=== PATIENT | male | born 2005 | race Caucasian/White ===

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

== ENCOUNTER 2024-08-31 12:59 | Emergency (ER) | payer OTHER, SELFPAY ==
[2024-08-31 13:07] VITALS: BP 119/54; PULSE 84; RESP 20; TEMP 36.7; O2SAT 98
[2024-08-31 13:37] LABS: EDSTREPNEGPOS1 Negative (Negative)
--- NOTE | 2024-08-31 14:13 | ED_ITS ---
HPI - General Adult General Chief complaint: Upper Respiratory Infection Stated complaint: Sore Throat Source: patient Mode of arrival: ambulatory Limitations: no limitations History of Present Illness HPI narrative: Patient presents requesting a strep test. He lives with two individuals at tested positive for strep earlier today. He denies sore throat. No fever, chills, cough otalgia, nausea, or diarrhea. In fact, he has no physical symptoms whatsoever. Related Data Home Medications ?Medication ?Instructions ?Recorded ?Confirmed ?Last Taken ?Type No Home Medications 11/01/23 08/31/24 Unknown History Allergies Allergy/AdvReac Type Severity Reaction Status Date / Time No Known Allergies Allergy Unknown Verified 08/31/24 13:53 Review of Systems Review of Systems: CONSTITUTIONAL: Denies fever, chills, or sweats. EYES: Denies visual changes, redness, or discharge. ENT: Denies rhinorrhea, congestion, sore throat, or otalgia. CARDIOVASCULAR: Denies chest pain, palpitations, or edema. RESPIRATORY: Denies cough or dyspnea. GASTROINTESTINAL: Denies abdominal pain, nausea, vomiting, or diarrhea. GENITOURINARY: Denies dysuria or hematuria. SKIN: Denies rash or itching. MUSCULOSKELETAL: Denies back pain, joint pain, or myalgia. NEUROLOGIC: Denies headache, numbness, dizziness, or weakness. PSYCHIATRIC: Denies anxiety or depression. PMFSH Past Medical History Medical History No pertinent past medical history Surgical History Surgical History No pertinent past surgical history Family History Family History Mother Family history non-contributory Social History Social History (Updated 08/31/24 @ 14:15 by Bharathi Dobbins, [facility], ) Substance use: current Substance use type: marijuana Living arrangements: with family Gender identity (if verbalized by the patient): Male Spiritual care concerns: No Exam Narrative: GENERAL: Well-appearing, well-nourished, and in no acute distress. HEAD: Normocephalic, atraumatic. EYES: PERRLA and EOMI. ENT: Nares clear, no rhinorrhea or epistaxis. Mucous membranes moist. Oropharynx without tonsillar hypertrophy exudate or other lesions. Bilateral TMs pearly bauer nonbulging NECK: Supple. No adenopathy or masses. No carotid bruits or JVD CHEST: Clear to auscultation. No respiratory distress. No wheezes rales or rhonchi HEART: Regular rate and rhythm. No murmur heard. Normal peripheral pulses. ABDOMEN: Soft, nontender, nondistended, normal active bowel sounds. EXTREMITIES: Normal range of motion. No edema. SKIN: Warm, dry, no rash. NEURO: No focal deficits. Alert and oriented x3. PSYCH: Normal mood and affect. Course Course Emergency Course: This is a 19-year-old female who presented requesting a strep test. Strep negative. Will send throat culture. Follow up with primary provider. Go to the ER for worsening symptoms. Pt in agreement with plan of care. Level of Care: Express Care Visit Vital Signs Vital signs: Vital Signs Temperature 36.7 C 08/31/24 13:07 Pulse Rate 84 08/31/24 13:07 Respiratory Rate 20 08/31/24 13:07 Blood Pressure 119/54 L 08/31/24 13:07 Pulse Oximetry 98 08/31/24 13:07 Oxygen Delivery Room Air 08/31/24 13:07 Temperature 36.7 C 08/31/24 13:07 Pulse Rate 84 08/31/24 13:07 Respiratory Rate 20 08/31/24 13:07 Blood Pressure 119/54 L 08/31/24 13:07 Pulse Oximetry 98 08/31/24 13:07 Oxygen Delivery Room Air 08/31/24 13:07 Medical Decision Making Vital Signs Vital Signs: Vital Signs Temperature 36.7 C 08/31/24 13:07 Pulse Rate 84 08/31/24 13:07 Respiratory Rate 20 08/31/24 13:07 Blood Pressure 119/54 L 08/31/24 13:07 Pulse Oximetry 98 08/31/24 13:07 Oxygen Delivery Room Air 08/31/24 13:07 Temperature 36.7 C 08/31/24 13:07 Pulse Rate 84 08/31/24 13:07 Respiratory Rate 20 08/31/24 13:07 Blood Pressure 119/54 L 08/31/24 13:07 Pulse Oximetry 98 08/31/24 13:07 Oxygen Delivery Room Air 08/31/24 13:07 Lab Data Labs: Lab Results 08/31/24 Range/Units 13:35 POC Grp A Strep Screen Negative (Negative) Discharge Plan Discharge Clinical Impression: Exposure to strep throat Patient Disposition: Home, Self-Care Condition: Stable Instructions: Antibiotic Form, Normal Exam (ED) Patient Language: Icelandic Prescriptions: No Action No Home Medications Follow-up/Referrals: Dionna Polanco DO [Physician] - Time of Disposition: 14:12
== END 2024-08-31 14:14 | disposition home or self-care (01) ==
PROVIDERS: Emergency Provider Nurse Practitioner
DX: Z20.818 Contact with and (suspected) exposure to other bacterial communicable diseases (principal); F12.90 Cannabis use, unspecified, uncomplicated
CPT/HCPCS: 87081; 87880; 99213; G0463

== ENCOUNTER 2025-02-02 09:02 | Emergency (ER) | payer OTHER, SELFPAY ==
[2025-02-02 09:20] VITALS: BP 127/73; PULSE 91; RESP 20; TEMP 36.6; O2SAT 99
--- NOTE | 2025-02-02 09:37 | ED.EAR ---
HPI - Ear Problem General Chief complaint: Ear Stated complaint: Ear Pain Time Seen by Provider: 02/02/25 09:20 Source: patient and RN notes reviewed Mode of arrival: ambulatory Limitations: no limitations History of Present Illness HPI Narrative: 19-year-old male presents Express Care complaining of bilateral ear pain proximally 2 days. Patient said started in his right ear now his left ear starting to hurt. Patient is states his right ear hurts worse than his left. Patient stated he recently was swimming and jumped into a deep in under water and felt water get into his ears. Patient denies any upper respiratory symptoms, cough, fevers, body aches, chills, dizziness, or any other symptoms. Patient has not tried anything to help with symptoms. Patient denies any otorrhea. Related Data Allergies Allergy/AdvReac Type Severity Reaction Status Date / Time No Known Allergies Allergy Unknown Verified 02/02/25 09:28 Review of Systems Review of Systems: CONSTITUTIONAL: Denies fever, chills, or sweats. EYES: Denies visual changes, redness, or discharge. ENT: Denies rhinorrhea, congestion, sore throat. Positive for otalgia. CARDIOVASCULAR: Denies chest pain, palpitations, dizziness, lightheadedness, or edema. RESPIRATORY: Denies cough or dyspnea. GASTROINTESTINAL: Denies abdominal pain, nausea, vomiting, or diarrhea. GENITOURINARY: Denies dysuria or hematuria. SKIN: Denies rash or itching. MUSCULOSKELETAL: Denies back pain, joint pain, or myalgia. NEUROLOGIC: Denies headache, numbness, or weakness. PSYCHIATRIC: Denies anxiety or depression. All other systems reviewed are negative, except as documented in HPI. [facility] Past Medical History Medical History No pertinent past medical history Surgical History Surgical History No pertinent past surgical history Family History Family History Mother Family history non-contributory Social History Social History Substance use: current Substance use type: marijuana Living arrangements: with family Gender identity (if verbalized by the patient): Male Spiritual care concerns: No Comments At the time of my signature, I reviewed and agree with the nursing past medical, surgical, social, and family history. There is no relevant family history pertinent to the patient complaint. Exam Narrative: GENERAL: This is a well-nourished, well-developed adult, in no apparent distress. They are non ill-appearing, nontoxic appearing. HEAD: normocephalic, atraumatic. EYES: Sclera clear/white. Conjunctiva normal. Vision is grossly intact. Extraocular movements intact EARS: External ears normal, auditory canals erythematous with exudate bilaterally, right tragal tenderness, TMs normal without perforation. Hearing grossly intact. No mastoid tenderness. NOSE: External nose normal with no obvious nasal discharge, nasal turbinates without redness, no rhinorrhea. THROAT: Mucous membranes moist, posterior pharynx clear, without erythema or swelling. Uvula midline. NECK: Neck supple, non-tender without lymphadenopathy, masses or thyromegaly. CARDIOVASCULAR: Regular rate and rhythm RESPIRATORY: Respiratory rate normal, respiratory effort nonlabored, no respiratory distress SKIN: warm, Dry, intact with no suspicious lesions or rash, good texture and turgor. NEURO: awake, alert, and oriented to person, place and time. There were no obvious focal neurologic abnormalities. EXTREMITIES: No joint tenderness, effusion, or edema noted. Course Course Emergency Course: Portions of this record may have been created with voice recognition software Level of Care: Express Care Visit Vital Signs Vital signs: Vital Signs Temperature 97.8 F 02/02/25 09:20 Pulse Rate 91 02/02/25 09:20 Respiratory Rate 02/02/25 09:20 Blood Pressure 127/73 02/02/25 09:20 Pulse Oximetry 99 02/02/25 09:20 Oxygen Delivery Room Air 02/02/25 09:20 Temperature 97.8 F 02/02/25 09:20 Pulse Rate 91 02/02/25 09:20 Respiratory Rate 20 02/02/25 09:20 Blood Pressure 127/73 02/02/25 09:20 Pulse Oximetry 99 02/02/25 09:20 Oxygen Delivery Room Air 02/02/25 09:20 Reviewed Medical Decision Making MDM Narrative Medical decision making narrative: Patient has bilateral otitis externa from swimmer's ear. Will treat with ofloxacin ear drops. Discussed physical exam findings. Advised supportive measures and signs/symptoms to go to the ER. Pt is appropriate for outpt treatment and f/u. Differential Diagnosis Differential Diagnosis: Otitis media, otitis externa, upper respiratory infection Vital Signs Vital Signs: Vital Signs Temperature 97.8 F 02/02/25 09:20 Pulse Rate 91 02/02/25 09:20 Respiratory Rate 20 02/02/25 09:20 Blood Pressure 127/73 02/02/25 09:20 Pulse Oximetry 99 02/02/25 09:20 Oxygen Delivery Room Air 02/02/25 09:20 Temperature 97.8 F 02/02/25 09:20 Pulse Rate 91 02/02/25 09:20 Respiratory Rate 20 02/02/25 09:20 Blood Pressure 127/73 02/02/25 09:20 Pulse Oximetry 99 02/02/25 09:20 Oxygen Delivery Room Air 02/02/25 09:20 Critical Care Time Critical Care Time Critical Care Time: No Discharge Plan Discharge Clinical Impression: Otitis externa Qualifiers: Otitis externa type: swimmer's ear Chronicity: acute Laterality: bilateral Qualified Code(s): H60.333 - Swimmer's ear, bilateral Patient Disposition: Home Condition: Stable Instructions: Antibiotic Form, Swimmer's Ear (ED), How to Use Ear Drops (ED) Additional Instructions: Swimmer's ear is an infection in the outer ear canal, which runs from your eardrum to the outside of your head. It's often caused by water that remains in your ear, creating a moist environment that encourages the growth of bacteria. Take antibiotic drops as directed. Tylenol and ibuprofen every 8 hours as needed to reduce fever, pain Avoid water or anything into the ear for one week Follow up with your personal physician for further evaluation and treatment within 3-5days. If your symptoms persist, change or worsen significantly, go to the emergency department for further evaluation. Patient Language: Marshallese Prescriptions: New ofloxacin 0.3 % drops 10 drp EACH EAR DAILY 7 Days Qty: 10 0RF Follow-up/Referrals: PHYSICIAN NOT ON STAFF,NONSTAFF [Primary Care Provider] - Time of Disposition: 09:34
== END 2025-02-02 09:35 | disposition home or self-care (01) ==
DX: H60.333 Swimmer's ear, bilateral (principal)
CPT/HCPCS: 99213; G0463